=== PATIENT | female | born 1950 | race Caucasian/White ===

== ENCOUNTER 2018-02-02 06:21 | Observation (INO) | payer OTHER, MEDICARE ==
[~2018-02-02] VITALS: Ht 167.6 cm; Wt 90.7 kg
--- NOTE | 2018-02-02 07:01 | ED GENERAL ADULT ---
History of Present Illness General Chief Complaint: Abdominal Pain/Flank Pain Stated Complaint: LOWER INTESTINAL DISCOMFORT PER PT Source: patient Exam Limitations: no limitations Allergies Coded Allergies: No Known Allergies (02/02/18) Reconcile Medications Hydrochlorothiazide 25 MG TABLET 1 TAB PO DAILY HEART (Reported) Lisinopril 40 MG TABLET 1 TAB PO DAILY HEART (Reported) Triage Note: SEE NURSES NOTES Triage Nurses Notes Reviewed? yes Onset: Abrupt Duration: day(s): Timing: recent history HPI: 02/02/18 7:15 AM 59-year-old female presents to the emergency department with lower abdominal pain. She says she was in her usual state of health until approximately 11 AM yesterday when she developed lower quadrant abdominal pain. It is difficult for her to find a position of comfort. Positive nausea, no vomiting, no fever. (Freddy Newton DO) Vital Signs & Intake/Output Vital Signs & Intake/Output Vital Signs Date Time Temp Pulse Resp B/P B/P Pulse O2 O2 Flow FiO2 Mean Ox Delivery Rate 02/02 1711 99.6 94 18 155/68 94 02/02 1650 100.4 02/02 1639 100.4 82 18 128/84 94 Room Air 02/02 1130 97.7 69 20 177/79 98 Room Air 02/02 0857 97.7 82 20 182/84 96 Room Air 02/02 0648 146/90 02/02 0642 97.5 92 18 200/97 96 Room Air (Nadja BORRERO,Bruno Handley) Past History Travel History Traveled to [place] past 21 day No Medical History Any Pertinent Medical History? see below for history Cardiovascular: hypertension Surgical History Surgical History: Left knee replacement Psychosocial History What is your primary language Vincentian Tobacco Use: Quit >30 days ago ETOH Use: occasional use Illicit Drug Use: denies illicit drug use Family History Hx Contributory? No (Freddy Newton DO) Review of Systems Review of Systems Constitutional: Denies: fever. EENTM: Reports: no symptoms. Respiratory: Denies: short of breath. Cardiovascular: Denies: chest pain. GI: Reports: abdominal pain, diarrhea, nausea. Genitourinary: Reports: no symptoms. Musculoskeletal: Reports: no symptoms. Skin: Reports: no symptoms. Neurological/Psychological: Reports: no symptoms. Hematologic/Endocrine: Reports: no symptoms. Immunologic/Allergic: Reports: no symptoms. (Freddy Newton DO) Physical Exam Physical Exam General Appearance: well developed/nourished, alert, awake, anxious, mild distress Head: atraumatic, normal appearance Eyes: Bilateral: normal appearance, PERRL, EOMI. Ears, Nose, Throat: normal pharynx, normal ENT inspection Neck: normal inspection, supple Respiratory: normal breath sounds, chest non-tender, no respiratory distress Cardiovascular: regular rate/rhythm Peripheral Pulses: 4+ radial (R), 4+ radial (L) Gastrointestinal: soft, non-tender Back: normal range of motion Extremities: normal inspection, no edema Neurologic/Psych: no motor/sensory deficits, awake, alert, oriented x 3 Skin: intact, normal color, warm/dry Core Measures ACS in differential dx? No CVA/TIA Diagnosis: No Sepsis Present: No Sepsis Focused Exam Completed? No (Freddy Newton DO) Progress Differential Diagnoses I considered the following diagnoses in my evaluation of the patient: [ Diverticulitis, renal colic, pyelonephritis, appendicitis,] Initial ED EKG: pending (Freddy Newton DO) Plan of Care: Orders Procedure Date/time Status Clear Liquid Diet 02/03 B Active Nothing by Mouth 02/02 D Complete Pathway - chart 02/02 194 Active Patient Data 02/02 194 Active Code Status 02/[address] in observation 02/02 1539 Active ED Holding Orders 02/02 1539 Active Vital Signs 02/02 1539 Active Code Status 02/02 1539 Complete URINALYSIS 02/02 0720 Complete TROPONIN LEVEL 02/02 0656 Complete LIPASE 02/02 0656 Complete HEPATIC FUNCTION PANEL 02/02 0656 Complete CBC WITHOUT DIFFERENTIAL 02/02 0656 Complete BASIC METABOLIC PANEL 02/02 0656 Complete AMYLASE 02/02 0656 Complete EKG 02/[address] in observation 02/02 UNK Active VTE Mechanical Prophylaxis 02/02 UNK Active Vital Signs 02/02 UNK Active Intake & Output 02/02 UNK Active Activity/Ambulation 02/02 UNK Active Current Medications Sig/Krystal Start time Last Medication Dose Stop Time Status Admin Heparin Sodium 5,000 UNIT Q8 02/03 0600 UNVr (Porcine) Ampicillin Sodium/ 1,500 MG Q6 02/02 2359 UNVr Sulbactam Sodium (Unasyn) Sodium Chloride 100 ML (Normal Saline 0.9%) Docusate Sodium 100 MG BID 02/02 2100 UNVr (Colace) Acetaminophen 650 MG Q6P PRN 02/02 1945 UNVr (Tylenol) Dextrose/Sodium 1,000 ML .Q10H 02/02 1945 UNVr Chloride (D5-Normal Saline) Morphine Sulfate 2 MG Q2P PRN 02/02 1945 UNVr (Morphine) Ondansetron HCl 4 MG Q6P PRN 02/02 1945 UNVr (Zofran) Oxycodone/ 1 TAB Q4P PRN 02/02 1945 UNVr Acetaminophen (Percocet) Oxycodone/ 2 TAB Q4P PRN 02/02 1945 UNVr Acetaminophen (Percocet) Promethazine HCl 12.5 MG Q6P PRN 02/02 1945 UNVr (Phenergen) 02/10 1944 Potassium Chloride 40 MEQ 125 MLS/HR 02/02 163 UNVr (KCl 40MEQ in D5W 1/ 2NS 1000ml) Laboratory Tests 02/02/18 0825: Urine Color YEL, Urine Clarity CLEAR, Urine pH 6.5, Ur Specific [place] 1.010, Urine Protein NEG, Urine Ketones TRACE H, Urine Nitrite NEG, Urine Bilirubin NEG, Urine Urobilinogen 0.2, Ur Leukocyte Esterase NEG, Ur Microscopic SEDIMENT EXAMINED, Urine RBC 1-3, Ur Epithelial Cells FEW, Urine Hemoglobin SMALL H, Urine Glucose 500 H 02/02/18 0704: Anion Gap 13, Estimated GFR > 60, BUN/Creatinine Ratio 35.0 H, Glucose 117 H, Calcium 9.3, Total Bilirubin 0.9, Direct Bilirubin 0.1, AST 26, ALT 30, Alkaline Phosphatase 82, Troponin I 0.01, Total Protein 6.7, Albumin 3.9, Amylase 38, Lipase 60, CBC w Diff NO MAN DIFF REQ, RBC 4.30, MCV 86.7, MCH 29.9, MCHC 34.5, RDW 14.1, MPV 7.9, Gran % 86.7 H, Lymphocytes % 7.2 L, Monocytes % 5.8, Eosinophils % 0.2, Basophils % 0.1, Absolute Granulocytes 9.2 H, Absolute Lymphocytes 0.8 L, Absolute Monocytes 0.6, Absolute Eosinophils 0, Absolute Basophils 0 Comments: Discussed with Dr. Abernathy he will send the PA down to evaluate her. (Nadja BORRERO,Bruno Handley) Departure Departure Disposition: STILL A PATIENT Condition: Stable Clinical Impression Primary Impression: Cholelithiasis Secondary Impressions: Abdominal pain Referrals: Patient Has No Primary Care Dr (PCP/Family) Departure Forms: Customer Survey General Discharge Information Comments PATIENT: STACEY TIRADO PRESENT AGE: 67 PATIENT ACCOUNT NO: [id number] : 49 LOCATION: [facility] ORDERING PHYSICIAN: Freddy Newton DO SERVICE DATE: 02/02/18 EXAM TYPE: CAT - CT ABD & PELVIS W IV CONTRAST EXAMINATION: CT ABDOMEN AND PELVIS WITH CONTRAST CLINICAL INFORMATION: 67-year-old female with abdominal pain. COMPARISON: None TECHNIQUE: Multidetector volumetric imaging was performed of the abdomen and pelvis following IV administration of 94 mL of Optiray 320 intravenous contrast. Sagittal and coronal reformatted images were obtained on the technologist's workstation. DLP: 512 mGy-cm FINDINGS: LUNG BASES: Linear and hazy opacities of mild atelectasis within lower lobes. Atherosclerotic calcification of left anterior descending coronary artery. No pericardial or pleural effusion. LIVER, GALLBLADDER, AND BILIARY TREE: Liver has normal size, contour and attenuation. No periportal edema. Gallbladder is physiologically distended and its wall is edematous. No calcified gallstones. Sonographic imaging may be helpful to assess for presence or absence of noncalcified stones. No intrahepatic bile duct dilatation. The common bile duct measures up to 7-8 mm diameter. PANCREAS: Unremarkable. SPLEEN: Unremarkable. ADRENAL GLANDS: Unremarkable. KIDNEYS AND URETERS: Kidneys are normal in size and enhance symmetrically. 0.8 cm simple cyst of the lower pole of the right kidney. 1 cm and 1.4 cm simple cysts of the mid and lower pole the left kidney. Other scattered small subcentimeter sized hypodense foci in both kidneys are likely cysts but are too small for definitive characterization. No nephrolithiasis or hydronephrosis. BLADDER: Unremarkable. GASTROINTESTINAL TRACT: Stomach is unremarkable. Loops of bowel are normal in caliber. Scattered colonic diverticula without diverticulitis. The appendix is not identified. No inflammatory changes within the right lower quadrant of the abdomen. No ascites or pneumoperitoneum. ABDOMINAL WALL: Unremarkable. LYMPH NODES: Normal. VASCULAR: Mild atherosclerosis of the abdominal aorta and iliac arteries without aneurysm. PELVIC VISCERA: The uterus is atrophied. 0.7 cm calcified intramural leiomyoma of the left uterine body. No adnexal mass or pelvic free fluid. OSSEOUS STRUCTURES: Multilevel facet osteoarthritis of the lumbar spine, most severe at L4-L5 with grade 1 anterolisthesis of L4 on L5. Multilevel degenerative disc disease of lumbar spine. No aggressive osseous lesions. 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 IMPRESSION: 1. Gallbladder wall is edematous in this patient with abdominal pain. No calcified gallstones are seen. Gallbladder wall edema is nonspecific but could reflect presence of acute cholecystitis, if in the right clinical context. Sonographic imaging of the right upper quadrant may be helpful. 2. Scattered colonic diverticula without diverticulitis. DICTATED BY: Jaron Roberts MD DATE/TIME DICTATED:02/02/181117 MEDICAL SALES:ROSA DATE/TIME TRANSCRIBED:02/02/181117 CONFIDENTIAL, DO NOT COPY WITHOUT APPROPRIATE AUTHORIZATION. <Electronically signed in Other Vendor System> SIGNED BY: Jaron Roberts MD 02/02/18 1130 Admission Note Documentation of Exam: CT scan results shown below PATIENT: STACEY TIRADO PRESENT AGE: 67 PATIENT ACCOUNT NO: [id number] : 49 LOCATION: [facility] ORDERING PHYSICIAN: Freddy Newton DO SERVICE DATE: 02/02/18 EXAM TYPE: CAT - CT ABD & PELVIS W IV CONTRAST EXAMINATION: CT ABDOMEN AND PELVIS WITH CONTRAST CLINICAL INFORMATION: 67-year-old female with abdominal pain. COMPARISON: None TECHNIQUE: Multidetector volumetric imaging was performed of the abdomen and pelvis following IV administration of 94 mL of Optiray 320 intravenous contrast. Sagittal and coronal reformatted images were obtained on the technologist's workstation. DLP: 512 mGy-cm FINDINGS: LUNG BASES: Linear and hazy opacities of mild atelectasis within lower lobes. Atherosclerotic calcification of left anterior descending coronary artery. No pericardial or pleural effusion. LIVER, GALLBLADDER, AND BILIARY TREE: Liver has normal size, contour and attenuation. No periportal edema. Gallbladder is physiologically distended and its wall is edematous. No calcified gallstones. Sonographic imaging may be helpful to assess for presence or absence of noncalcified stones. No intrahepatic bile duct dilatation. The common bile duct measures up to 7-8 mm diameter. PANCREAS: Unremarkable. SPLEEN: Unremarkable. ADRENAL GLANDS: Unremarkable. KIDNEYS AND URETERS: Kidneys are normal in size and enhance symmetrically. 0.8 cm simple cyst of the lower pole of the right kidney. 1 cm and 1.4 cm simple cysts of the mid and lower pole the left kidney. Other scattered small subcentimeter sized hypodense foci in both kidneys are likely cysts but are too small for definitive characterization. No nephrolithiasis or hydronephrosis. BLADDER: Unremarkable. GASTROINTESTINAL TRACT: Stomach is unremarkable. Loops of bowel are normal in caliber. Scattered colonic diverticula without diverticulitis. The appendix is not identified. No inflammatory changes within the right lower quadrant of the abdomen. No ascites or pneumoperitoneum. ABDOMINAL WALL: Unremarkable. LYMPH NODES: Normal. VASCULAR: Mild atherosclerosis of the abdominal aorta and iliac arteries without aneurysm. PELVIC VISCERA: The uterus is atrophied. 0.7 cm calcified intramural leiomyoma of the left uterine body. No adnexal mass or pelvic free fluid. OSSEOUS STRUCTURES: Multilevel facet osteoarthritis of the lumbar spine, most severe at L4-L5 with grade 1 anterolisthesis of L4 on L5. Multilevel degenerative disc disease of lumbar spine. No aggressive osseous lesions. 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 IMPRESSION: 1. Gallbladder wall is edematous in this patient with abdominal pain. No calcified gallstones are seen. Gallbladder wall edema is nonspecific but could reflect presence of acute cholecystitis, if in the right clinical context. Sonographic imaging of the right upper quadrant may be helpful. 2. Scattered colonic diverticula without diverticulitis. DICTATED BY: Jaron Roberts MD DATE/TIME DICTATED:02/02/181117 MEDICAL SALES:ROSA DATE/TIME TRANSCRIBED:02/02/181117 CONFIDENTIAL, DO NOT COPY WITHOUT APPROPRIATE AUTHORIZATION. <Electronically signed in Other Vendor System> SIGNED BY: Jaron Roberts MD 02/02/18 4259 The patient was signed out to Dr. Saez. She has no abdominal pain on reevaluation. She is pending surgical consultation., (Freddy Newton DO) Observation Note Spoke With: Faisal Donis DO Physician Advisor Notified: BRUNO SAEZ MD Place Patient In: Non-ED OBS Care Area Rationale for Observation: My rational for observation is as follows [LAP WILLA, IV ABX]. OR/GI Note Spoke With: Faisal Donis DO ED Treatment Decision: STACEY TIRADO requires urgent operative management or an emergent procedure that cannot be performed in the Emergency Room setting. Transport To: [facility] (Nadja BORRERO,Bruno Handley) Critical Care Note Critical Care Note Critical Care Time: non-applicable (Freddy Newton DO)
[2018-02-02 07:18] LABS: ABSOLUTE BASOPHIL COUNT 0 /CUMM (0.0-0.2); ABSOLUTE EOSINOPHIL COUNT 0 /CUMM (0.0-0.7); ABSOLUTE GRANULOCYTE CT 9.2 /CUMM (1.4-6.5); ABSOLUTE LYMPH COUNT 0.8 /CUMM (1.2-3.4); ABSOLUTE MONOCYTE COUNT 0.6 /CUMM (0.10-0.60); BASOPHIL % 0.1 % (0.0-2.0); EOSINOPHIL % 0.2 % (0-5); HEMATOCRIT 37.2 % (37-47); MEAN CORPUSCULAR HGB 29.9 PG (27.0-31.0); MEAN CORPUSCULAR HGB CONC 34.5 G/DL (33.0-37.0); MEAN CORPUSCULAR VOLUME 86.7 FL (81.0-99.0); MEAN PLATELET VOLUME 7.9 FL (7.4-10.4); PLATELET COUNT 258 /CUMM (130-400); RBC DISTRIBUTION WIDTH 14.1 % (11.5-14.5); WHITE BLOOD CELL COUNT 10.6 /CUMM (4.8-10.8)
[2018-02-02 07:36] LABS: GRANULOCYTE % 86.7 % (42.2-75.2)
[2018-02-02] MEDS ORDERED: HYDROCHLOROTHIA25 M1 PO (07:48)
[2018-02-02] MEDS ORDERED: LISINOPRIL40 M1 PO (07:48)
--- NOTE | 2018-02-02 11:30 | CT SCAN REPORT ---
EXAMINATION: CT ABDOMEN AND PELVIS WITH CONTRAST CLINICAL INFORMATION: 67-year-old female with abdominal pain. COMPARISON: None TECHNIQUE: Multidetector volumetric imaging was performed of the abdomen and pelvis following IV administration of 94 mL of Optiray 320 intravenous contrast. Sagittal and coronal reformatted images were obtained on the technologist's workstation. DLP: 512 mGy-cm FINDINGS: LUNG BASES: Linear and hazy opacities of mild atelectasis within lower lobes. Atherosclerotic calcification of left anterior descending coronary artery. No pericardial or pleural effusion. LIVER, GALLBLADDER, AND BILIARY TREE: Liver has normal size, contour and attenuation. No periportal edema. Gallbladder is physiologically distended and its wall is edematous. No calcified gallstones. Sonographic imaging may be helpful to assess for presence or absence of noncalcified stones. No intrahepatic bile duct dilatation. The common bile duct measures up to 7-8 mm diameter. PANCREAS: Unremarkable. SPLEEN: Unremarkable. ADRENAL GLANDS: Unremarkable. KIDNEYS AND URETERS: Kidneys are normal in size and enhance symmetrically. 0.8 cm simple cyst of the lower pole of the right kidney. 1 cm and 1.4 cm simple cysts of the mid and lower pole the left kidney. Other scattered small subcentimeter sized hypodense foci in both kidneys are likely cysts but are too small for definitive characterization. No nephrolithiasis or hydronephrosis. BLADDER: Unremarkable. GASTROINTESTINAL TRACT: Stomach is unremarkable. Loops of bowel are normal in caliber. Scattered colonic diverticula without diverticulitis. The appendix is not identified. No inflammatory changes within the right lower quadrant of the abdomen. No ascites or pneumoperitoneum. ABDOMINAL WALL: Unremarkable. LYMPH NODES: Normal. VASCULAR: Mild atherosclerosis of the abdominal aorta and iliac arteries without aneurysm. PELVIC VISCERA: The uterus is atrophied. 0.7 cm calcified intramural leiomyoma of the left uterine body. No adnexal mass or pelvic free fluid. OSSEOUS STRUCTURES: Multilevel facet osteoarthritis of the lumbar spine, most severe at L4-L5 with grade 1 anterolisthesis of L4 on L5. Multilevel degenerative disc disease of lumbar spine. No aggressive osseous lesions. 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 IMPRESSION: 1. Gallbladder wall is edematous in this patient with abdominal pain. No calcified gallstones are seen. Gallbladder wall edema is nonspecific but could reflect presence of acute cholecystitis, if in the right clinical context. Sonographic imaging of the right upper quadrant may be helpful. 2. Scattered colonic diverticula without diverticulitis.
--- NOTE | 2018-02-02 13:31 | ULTRASOUND REPORT ---
EXAMINATION: US ABDOMEN LIMITED CLINICAL INFORMATION: Abdominal pain. Evaluate for cholecystitis.. COMPARISON: None TECHNIQUE: Real-time imaging of the right upper quadrant abdominal viscera. FINDINGS: PANCREAS: Normal. LIVER: Normal. The liver demonstrates normal size, contour and echotexture. No focal lesion or intrahepatic bile duct dilatation. GALLBLADDER: Gallbladder contains several calculi, largest measuring up to 1.5 cm. Gallbladder wall is edematous and measures up to 0.8 cm thick. 1.3 cm stone is present in the gallbladder neck. Trace pericholecystic fluid is present. Patient was medicated. Therefore, unable to properly assess for Tovar's sign. COMMON BILE DUCT: The visualized common duct is normal in caliber and measures 0.5 cm in diameter. RIGHT KIDNEY: The right kidney is 11.4 cm in length. It has normal cortical thickness and echotexture. 0.7 cm simple cyst of the lower pole. No nephrolithiasis or hydronephrosis. FREE FLUID: None. IMPRESSION: Cholelithiasis, gallbladder wall edema and trace pericholecystic fluid. Patient is medicated. Therefore, unable to properly assess for a Tovar's sign. The constellation of findings are suggestive of acute cholecystitis.
--- NOTE | 2018-02-02 16:32 | History & Physical Pre-Op ---
Peace,Any 02/02/18 1558: General Information and HPI MD Statement: I have seen and personally examined KIM TIRADO and documented this H&P. The patient is a 67 year old F who presented with a patient stated chief complaint of [abdominal pain]. Source of Information: patient Exam Limitations: no limitations History of Present Illness: Kim presents to the ER with complaints of abdominal pain that began yesterday after eating a lunch consisting of spinach and chicken. She states that approximately 2 hours after eating her food, she began to notice discomfort and tightening across her upper abdomen. She states that she did not have any episodes of emesis, but she did have frequent bms, the most recent one was loose. She had abdominal pain throughout the night. She is now feeling feverish. She denies chest pain, shortness of breath and difficulty breathing. She has been voiding without difficulty. PMH is significant for htn for which she is on hctz as well as lisinopril. PSH is significant for L TKR. She denies abdominal surgeries but did have radiation for cervical ca. Allergies/Medications Allergies: Coded Allergies: No Known Allergies (02/02/18) Home Med list Hydrochlorothiazide 25 MG TABLET 1 TAB PO DAILY HEART (Reported) Lisinopril 40 MG TABLET 1 TAB PO DAILY HEART (Reported) Past History Medical History Cardiovascular: hypertension Surgical History Pertinent Surgical History: Left knee replacement Past Family/Social History Psychosocial History Where Do You Live? Home Who Do You Live With? spouse, child ETOH Use: occasional use Illicit Drug Use: denies illicit drug use Functional Ability ADLs Independent: dressing, eating, toileting, bathing. Review of Systems Review of Systems Constitutional: Reports: see HPI, fever, malaise. EENTM: Reports: no symptoms. Cardiovascular: Reports: no symptoms. Respiratory: Reports: no symptoms. Denies: short of breath. GI: Reports: see HPI, abdominal pain, bloating, diarrhea, nausea. Genitourinary: Reports: no symptoms. Denies: dysuria, pain, urgency. Musculoskeletal: Reports: no symptoms. Skin: Reports: no symptoms. Neurological/Psychological: Reports: no symptoms. Hematologic/Endocrine: Reports: no symptoms. Exam & Diagnostic Data Last 24 Hrs of Vital Signs/I&O Vital Signs Date Time Temp Pulse Resp B/P B/P Pulse O2 O2 Flow FiO2 Mean Ox Delivery Rate 06/13 1130 97.7 69 20 177/79 98 Room Air 02/02 0857 97.7 82 20 182/84 96 Room Air 02/02 0648 146/90 02/02 0642 97.5 92 18 200/97 96 Room Air Intake & Output 02/02 1600 02/02 0800 02/02 0000 Intake Total 0 Output Total Balance 0 Intake, Oral 0 Patient 200 lb Weight Weight Reported by Patient Measurement Method Physical Exam: General: Alert and oriented x3, no acute distress Cardiac: RRR, s1s2 Pulm: CTA -bilaterally, non-labored respiratory effort Abdomen: Soft, epigqastric and bilateral upper quadrant tenderness, +bs Extremities: Moves all extremities, distal sensation intact, neurovascular status intact, bilateral calves soft, nontender. Last 24 Hrs of Labs/Nic: Laboratory Tests 02/02/18 0825: Urine Color YEL, Urine Clarity CLEAR, Urine pH 6.5, Ur Specific [place] 1.010, Urine Protein NEG, Urine Ketones TRACE H, Urine Nitrite NEG, Urine Bilirubin NEG, Urine Urobilinogen 0.2, Ur Leukocyte Esterase NEG, Ur Microscopic SEDIMENT EXAMINED, Urine RBC 1-3, Ur Epithelial Cells FEW, Urine Hemoglobin SMALL H, Urine Glucose 500 H 02/02/18 0704: Anion Gap 13, Estimated GFR > 60, BUN/Creatinine Ratio 35.0 H, Glucose 117 H, Calcium 9.3, Total Bilirubin 0.9, Direct Bilirubin 0.1, AST 26, ALT 30, Alkaline Phosphatase 82, Troponin I 0.01, Total Protein 6.7, Albumin 3.9, Amylase 38, Lipase 60, CBC w Diff NO MAN DIFF REQ, RBC 4.30, MCV 86.7, MCH 29.9, MCHC 34.5, RDW 14.1, MPV 7.9, Gran % 86.7 H, Lymphocytes % 7.2 L, Monocytes % 5.8, Eosinophils % 0.2, Basophils % 0.1, Absolute Granulocytes 9.2 H, Absolute Lymphocytes 0.8 L, Absolute Monocytes 0.6, Absolute Eosinophils 0, Absolute Basophils 0 Diagnostic Data Other Results PATIENT: KIM TIRADO PRESENT AGE: 67 PATIENT ACCOUNT NO: [id number] : 49 LOCATION: [facility] ORDERING PHYSICIAN: Freddy Newton DO SERVICE DATE: 02/02/18 EXAM TYPE: US - US-LIMITED ABDOMEN EXAMINATION: US ABDOMEN LIMITED CLINICAL INFORMATION: Abdominal pain. Evaluate for cholecystitis.. COMPARISON: None TECHNIQUE: Real-time imaging of the right upper quadrant abdominal viscera. FINDINGS: PANCREAS: Normal. LIVER: Normal. The liver demonstrates normal size, contour and echotexture. No focal lesion or intrahepatic bile duct dilatation. GALLBLADDER: Gallbladder contains several calculi, largest measuring up to 1.5 cm. Gallbladder wall is edematous and measures up to 0.8 cm thick. 1.3 cm stone is present in the gallbladder neck. Trace pericholecystic fluid is present. Patient was medicated. Therefore, unable to properly assess for Tovar's sign. COMMON BILE DUCT: The visualized common duct is normal in caliber and measures 0.5 cm in diameter. RIGHT KIDNEY: The right kidney is 11.4 cm in length. It has normal cortical thickness and echotexture. 0.7 cm simple cyst of the lower pole. No nephrolithiasis or hydronephrosis. FREE FLUID: None. IMPRESSION: Cholelithiasis, gallbladder wall edema and trace pericholecystic fluid. Patient is medicated. Therefore, unable to properly assess for a Tovar's sign. The constellation of findings are suggestive of acute cholecystitis. DICTATED BY: Jaron Roberts MD DATE/TIME DICTATED:02/02/181322 STRATEGIC SOURCING SPECIALIST:ROSA DATE/TIME TRANSCRIBED:02/02/181322 CONFIDENTIAL, DO NOT COPY WITHOUT APPROPRIATE AUTHORIZATION. <Electronically signed in Other Vendor System> SIGNED BY: Jaron Roberts MD 02/02/18 1331 PATIENT: KIM TIRADO PRESENT AGE: 67 PATIENT ACCOUNT NO: [id number] : 49 LOCATION: [facility] ORDERING PHYSICIAN: Freddy Newton DO SERVICE DATE: 02/02/18 EXAM TYPE: CAT - CT ABD & PELVIS W IV CONTRAST EXAMINATION: CT ABDOMEN AND PELVIS WITH CONTRAST CLINICAL INFORMATION: 67-year-old female with abdominal pain. COMPARISON: None TECHNIQUE: Multidetector volumetric imaging was performed of the abdomen and pelvis following IV administration of 94 mL of Optiray 320 intravenous contrast. Sagittal and coronal reformatted images were obtained on the technologist's workstation. DLP: 512 mGy-cm FINDINGS: LUNG BASES: Linear and hazy opacities of mild atelectasis within lower lobes. Atherosclerotic calcification of left anterior descending coronary artery. No pericardial or pleural effusion. LIVER, GALLBLADDER, AND BILIARY TREE: Liver has normal size, contour and attenuation. No periportal edema. Gallbladder is physiologically distended and its wall is edematous. No calcified gallstones. Sonographic imaging may be helpful to assess for presence or absence of noncalcified stones. No intrahepatic bile duct dilatation. The common bile duct measures up to 7-8 mm diameter. PANCREAS: Unremarkable. SPLEEN: Unremarkable. ADRENAL GLANDS: Unremarkable. KIDNEYS AND URETERS: Kidneys are normal in size and enhance symmetrically. 0.8 cm simple cyst of the lower pole of the right kidney. 1 cm and 1.4 cm simple cysts of the mid and lower pole the left kidney. Other scattered small subcentimeter sized hypodense foci in both kidneys are likely cysts but are too small for definitive characterization. No nephrolithiasis or hydronephrosis. BLADDER: Unremarkable. GASTROINTESTINAL TRACT: Stomach is unremarkable. Loops of bowel are normal in caliber. Scattered colonic diverticula without diverticulitis. The appendix is not identified. No inflammatory changes within the right lower quadrant of the abdomen. No ascites or pneumoperitoneum. ABDOMINAL WALL: Unremarkable. LYMPH NODES: Normal. VASCULAR: Mild atherosclerosis of the abdominal aorta and iliac arteries without aneurysm. PELVIC VISCERA: The uterus is atrophied. 0.7 cm calcified intramural leiomyoma of the left uterine body. No adnexal mass or pelvic free fluid. OSSEOUS STRUCTURES: Multilevel facet osteoarthritis of the lumbar spine, most severe at L4-L5 with grade 1 anterolisthesis of L4 on L5. Multilevel degenerative disc disease of lumbar spine. No aggressive osseous lesions. 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 IMPRESSION: 1. Gallbladder wall is edematous in this patient with abdominal pain. No calcified gallstones are seen. Gallbladder wall edema is nonspecific but could reflect presence of acute cholecystitis, if in the right clinical context. Sonographic imaging of the right upper quadrant may be helpful. 2. Scattered colonic diverticula without diverticulitis. DICTATED BY: Jaron Roberts MD DATE/TIME DICTATED:02/02/181117 STRATEGIC SOURCING SPECIALIST:ROSA DATE/TIME TRANSCRIBED:02/02/181117 CONFIDENTIAL, DO NOT COPY WITHOUT APPROPRIATE AUTHORIZATION. <Electronically signed in Other Vendor System> SIGNED BY: Jaron Roberts MD 02/02/18 1130 Assessment/Plan Assessment/Plan: This is a 67 year old female, pmh significant for htn, hx of cervical ca. psh significant for l tkr, and radiation for cervical ca. She presents to ER with a greater than 24 hour history of abdominal pain that began after a lunch consisting of food that does not deviate from her regular diet. She underwent physical evaluation as well as ultrasound examination and labwork and it was deemed that she is experiencing symptoms of acute cholecystitis. She has agreed to undergo a laparoscopic cholecystectomy today after a discussion with Dr. Donis -NPO -IV fluids, replete potassium which was 3.3 -Unasyn 3g q6 -Routine pre-op cxr now -OR today for lap janel As Ranked By This Provider Problem List: 1. Abdominal pain Faisal Donis DO 02/02/181919: Attending MD Review Statement Attending Statement Attending MD Statement: examined this patient, discuss w/resident/PA/SOIL SCIENCE PROFESSOR, agreed w/resident/PA/SOIL SCIENCE PROFESSOR, discussed with family, reviewed EMR data (avail), reviewed images Attending Assessment/Plan: Patient seen and examined, agree with above. Abdominal pain for 1 day, denies similar episodes in the past. Tm 100.4 VSS. Abd-soft, +RUQ discomfort. Labs ok. CT scan and [place] c/w acute cholecystitis. NPO/IVF, IV Abx, plan for Lap Janel tonight.
--- NOTE | 2018-02-02 18:18 | RADIOLOGY REPORT ---
EXAMINATION: CHEST 1 VIEW CLINICAL INFORMATION: Pain. Pre-op. COMPARISON: None. TECHNIQUE: An AP view of the chest is provided. FINDINGS: The cardiac silhouette is not enlarged. The mediastinal and hilar contours are unremarkable. There are neither pleural effusions nor pneumothoraces. There are no consolidations. The osseous structures are unremarkable. IMPRESSION: No evidence for acute disease.
--- NOTE | 2018-02-02 19:27 | Operative Report ---
Operative/Inv Procedure Report Surgery Date: 02/02/18 Name of Procedure: Laparoscopic cholecystectomy Pre-Operative Diagnosis: Acute cholecystitis Post-Operative Diagnosis: Acute on chronic cholecystitis with hydrops Estimated Blood Loss: 50ml to 100ml Surgeon/Chief Informatics Officer: Faisal Martin Anesthesia: general endotracheal tube IV Fluids: 1000 cc Drains: None Specimens: Stomach Complications: None Condition: Stable Operative Indication: This is a 67-year-old female that presented to the emergency room with abdominal pain. After appropriate workup was completed the patient was diagnosed with acute cholecystitis. A laparoscopic possible open cholecystectomy was discussed in detail. All risk including but not limited to bleeding, infection, bile leak , and injury to surrounding duct/bowel were discussed in detail. The patient understood everything and decided to proceed. Operative/Procedure Note Note: The patient was brought to the operating room and placed on the operating room table in supine position. Venodyne stockings were placed and adequate general endotracheal anesthesia was obtained. The patient was prepped and draped in standard surgical fashion. We began the procedure by making a 2 cm transverse incision in the infraumbilical crease. The incision was carried down to the fascia, once the fascia was clearly visualized it was picked up between 2 nancy clamps. The fascia was divided in the midline and once we entered the peritoneum 2 stay 0 Vicryl sutures were placed on each side. A 12 mm blunt port was inserted and the abdominal cavity was insufflated to 15 mmHg. A 10 mm 30 laparoscope was introduced and upon initial examination no obvious gross pathology was seen. We did note a markedly distended gallbladder in the right upper quadrant. Accessory trocars were placed, all 5 mm, one in the epigastrium and 2 in the right upper quadrant (one in the midclavicular line and one in the anterior axillary line, both 2 fingerbreadths below the costal margin). The gallbladder was grasped with the lateralmost trocar and retracted up over the liver. Using the other 2 accessory trochars the infundibulum was grasped and the peritoneum was lysed using blunt dissection and using hook electrocautery. Of note the gallbladder was very thick and distended so visualization took some time. The cystic duct and cystic artery were visualized. The common bile duct was visualized and it was away from our area of dissection. The cystic duct and artery were skeletonized and divided between clips, 3 clips to stay and one clip on the gallbladder side for the duct and 2 clips to stay and one clip on the gallbladder side for the artery. The gallbladder was dissected off the liver bed using hook electrocautery maintaining hemostasis. Gallbladder was entered a couple of times and clear fluid drained indicative of hydrops and a chronic process. Prior to completely removing the gallbladder off the liver bed we examined the area of dissection no obvious bile leak or bleeding was noted, the clips appeared to be in good position. The gallbladder was completely detached from the liver bed. We switched to a 5 mm laparoscope and a 10 mm Endobag was introduced through the umbilical trocar site. The gallbladder was placed in the bag and removed through the umbilicus. The abdomen was reinsufflated. We switched back to a 10 mm laparoscope and examined our area of dissection. No obvious bile leak or bleeding was noted. The right upper quadrant was irrigated until clear. All ports were removed under direct visualization, no obvious bleeding was noted. The umbilical trocar site was closed using 0 Vicryl suture. The skin was closed using 4-0 Monocryl. Steri-Strips and dressings were placed. The patient was successfully extubated and transferred to the recovery room in stable condition. The patient tolerated the procedure well with no complications. Findings: Distended/thick walled gallbladder, + edema, multiple large stones, + hydrops
--- NOTE | 2018-02-02 21:04 | PN- General Surgery ---
Subjective Subjective: POC feeling ok, no oob, jessica sips of water, mild abd pain. no n/v/cp/sob. Objective Vital Signs and I&Os Vital Signs Date Time Temp Pulse Resp B/P B/P Pulse O2 O2 Flow FiO2 Mean Ox Delivery Rate 02/02 1711 99.6 94 18 155/68 94 02/02 1650 100.4 02/02 1639 100.4 82 18 128/84 94 Room Air 02/02 1130 97.7 69 20 177/79 98 Room Air 02/02 0857 97.7 82 20 182/84 96 Room Air 02/02 0648 146/90 02/02 0642 97.5 92 18 200/97 96 Room Air Intake & Output 02/02 1600 02/02 0800 02/02 0000 02/01 1600 02/01 0800 02/01 0000 Intake Total 0 Output Total Balance 0 Intake, Oral 0 Patient 200 lb Weight Weight Reported by Patient Measurement Method Physical Exam: GEN- NAD CARD- S1S2 RRR PULM- CTAB ABD- soft, ttp, incisions dressed -cdi EXT- calves soft nt bl, alps on Assessment/Plan Assessment/Plan A- POD0 sp lap rosemary for acute on chronic cholecystitis, with expected postop discomfort, stable. P- due to void postop oob, ambulate i&os prn pain meds home meds hep sq, alps clr liquids tonight, advance in am unasyn while in hospital, then dc on 1 week augmentin dc planning will dw attending Core Measures Venous Thromboembolism VTE Risk Factors Surgery No Mechanical VTE Prophylaxis d/t N/A MechProphylax Ordered No VTE Pharm Prophylaxis d/t NA PharmProphylax ordered
[2018-02-02 21:16] VITALS: BP 162/80
[2018-02-02 23:29] VITALS: BP 160/88
[2018-02-03 01:12] VITALS: BP 154/88
[2018-02-03 03:22] VITALS: BP 146/82
[2018-02-03 07:00] VITALS: BP 156/88
[2018-02-03] MEDS ORDERED: AUGMENTIN 875-1 EACH PO (07:38)
--- NOTE | 2018-02-03 07:38 | PN- Student ---
Isidro Dietz 02/03/18 0722: Subjective Subjective: General abdominal tenderness. no nausea, no vomiting. low appetite. Has passed flatus, but no bowel movements. No chest pain, palpitations, shortness of breath and calf pain. Making urine. Has ambulated to and from bath room. Objective Objective: Vitals: temp: 97.8 oral Pulse rate: 71 BP: 156/88 Respiratory rate: 20 Pulse ox 92% room air Physical Exam: general: no acute distress. oriented to time and place Pulm: clear to ausculation Cardio: s1 and s2, RRR Adbomen: Softly distended. Postive bowel sounds. mild tenderness near surgical sites. Extremities: calves soft and non tender bilaterally. Surgical sites: dressings at epigastric and umbilicus regions had minimal sanguinous discharge. Other 2 dressings on right side were clean, dry, and intact. Results Results: Laboratory Tests 02/02/18 0825: Urine Color YEL, Urine Clarity CLEAR, Urine pH 6.5, Ur Specific [place] 1.010, Urine Protein NEG, Urine Ketones TRACE H, Urine Nitrite NEG, Urine Bilirubin NEG, Urine Urobilinogen 0.2, Ur Leukocyte Esterase NEG, Ur Microscopic SEDIMENT EXAMINED, Urine RBC 1-3, Ur Epithelial Cells FEW, Urine Hemoglobin SMALL H, Urine Glucose 500 H 02/02/18 0704: Anion Gap 13, Estimated GFR > 60, BUN/Creatinine Ratio 35.0 H, Glucose 117 H, Calcium 9.3, Total Bilirubin 0.9, Direct Bilirubin 0.1, AST 26, ALT 30, Alkaline Phosphatase 82, Troponin I 0.01, Total Protein 6.7, Albumin 3.9, Amylase 38, Lipase 60, CBC w Diff NO MAN DIFF REQ, RBC 4.30, MCV 86.7, MCH 29.9, MCHC 34.5, RDW 14.1, MPV 7.9, Gran % 86.7 H, Lymphocytes % 7.2 L, Monocytes % 5.8, Eosinophils % 0.2, Basophils % 0.1, Absolute Granulocytes 9.2 H, Absolute Lymphocytes 0.8 L, Absolute Monocytes 0.6, Absolute Eosinophils 0, Absolute Basophils 0 Assessment/Plan Assessment: 67 year old female Post op day 1 for lap cholecystectomy. Doing well with minimal pain. Plan: Advance diet continue DVT prophylaxis Continue pain control regimine Zofran for nausea Plan for DC change unasyn to augmentin for 1 week for discharge Jayden Barrow 02/03/18 0855: Assessment/Plan Plan: Seen and examined. Agree with PA-S. Pain well controlled. Abdomen is soft and nondistended with bowel sound present and nontender on exam. Advance to low fat diet this morning. Cont abx while hospitalized. Transition to Augmention upon d/ c. Anticipate discharge today.
[2018-02-03] MEDS ORDERED: PERCOCET 5-3251 EACH PO (07:42)
--- NOTE | 2018-02-03 07:42 | Patient Discharge Instructions ---
Discharge Instructions General Discharge Information You were seen/treated for: Cholecystitis You had these procedures: Laparoscopic cholecystectomy on 02/02/18 Watch for these problems: Increased pain, fever, chills, redness, swelling or drainage from incisions Other wound care: Keep incisions clean an dry Ok to remove dressings in 48 hours Diet Continue normal diet: No Recommended Diet: Low Fat Activity Full Activity/No Limits: No Activity Self Limited: Yes Pounds, do NOT lift more than: 10 (x 4 weeks) Additional ACTIVITY Info: No heavy lifting or strenous activity Acute Coronary Syndrome Inclusion Criteria At DC or during hospital stay patient has or had the following: ACS DIAGNOSIS No Discharge Core Measures Meds if any: Prescribed or Continued at Discharge Meds if any: NOT Prescribed or Continued at Discharge Congestive Heart Failure Inclusion Criteria At DC or during hospital stay patient has or had the following: CHF DIAGNOSIS No Discharge Core Measures Meds if any: Prescribed or Continued at Discharge Meds if any: NOT Prescribed or Continued at Discharge Cerebrovascular accident Inclusion Criteria At DC or during hospital stay patient has or had the following: CVA/TIA Diagnosis No Discharge Core Measures Meds if any: Prescribed or Continued at Discharge Meds if any: NOT Prescribed or Continued at Discharge Venous thromboembolism Inclusion Criteria VTE Diagnosis No VTE Type NONE VTE Confirmed by (Test) NONE Discharge Core Measures - Per Current guidelines, there needs to be overlap - treatment for the first 5 days of Warfarin therapy. - If discharged on Warfarin prior to 5 days of - overlap therapy, the patient will need to be - assessed for post discharge needs including - *Post discharge parental anticoagulation - *Warfarin and/or parental anticoagulation education - *Follow up date to check INR post discharge At least 5 days overlap therapy as Inpatient No Meds if any: Prescribed or Continued at Discharge Note: Overlap Therapy is Warfarin and Anticoagulant Meds if any: NOT Prescribed or Continued at Discharge
--- NOTE | 2018-02-06 11:49 | Surg Short-stay <48hrs Dis Sum ---
Visit Information Visit Dates Admission Date: 02/02/18 Discharge Date: 02/03/18 Surgical Short Stay DC Summary Admission Diagnosis: Acute cholecystitis Final Diagnosis: Acute on chronic cholecystitis with hydrops s/p laparoscopic cholecystectomy Procedure(s): Laparoscopic cholecystectomy on 02/02/18 Summary/Significant Findings: Patient presented to the ER on 02/02/18 with abdominal pain. Found on imaging to have acute cholecystitis. She was taken to the OR emergently for laparoscopic cholecystectomy with Dr. Donis. Patient tolerated procedure without complication. Diet advanced and tolerated and pain controlled with oral analgesics. Stable for discharge home. Remainder of hospital course was uneventful. Condition at Discharge: Good Discharge Disposition: home or self care Discharge instructions provided to patient/family: Yes Post discharge follow-up plan: [address] Donis
== END 2018-02-03 11:14 ==
LOC: ERH 06:21 → ER-OR 06:32 → CANBEDREQ 11:24 → PACUH 19:49 → ENRESERV 20:11 → ENTRNSPT 20:40 → 2NB 20:51 → EDTRNSPTSTS 20:51 → CMPTRNSPT 21:04 → ENPENDDIS 02-03 09:20 → 2NB 02-03 09:53
PROVIDERS: Pediatrics
DX: K80.12 Calculus of gallbladder with acute and chronic cholecystitis without obstruction (principal); K82.1 Hydrops of gallbladder; I10 Essential (primary) hypertension; Z85.41 Personal history of malignant neoplasm of cervix uteri
CPT/HCPCS: 6040; 71045; 74177; 81001; 88304; 93005; 93010; 96372; 96374; 96375; 96376; G0378; J0131; J1644; J1885; J2250; J2405; J2550; J3010; J3490; J7042; Q9965